=== PATIENT | male | born 1965 | race Caucasian/White ===

== ENCOUNTER 2018-06-09 19:15 | Outpatient (REF) | payer MEDICAID, SELFPAY ==
[2018-06-09 22:04] LABS: Anion Gap 7.5 mmol/L (3-11); BUN 15 mg/dL (7-18); CO2 31.5 mmol/L (21.0-32.0); CREATININE 0.84 mg/dL (0.70-1.30); Calcium 9.7 mg/dL (8.5-10.1); Chloride 100 mmol/L (98-107); Cholesterol 159 mg/dL (50-200); Glucose 202 mg/dL (70-100); HDL Cholesterol 31 mg/dL (40-60); LDL CHOLESTEROL 58 mg/dL (<100); Potassium 4.5 mmol/L (3.5-5.1); Sodium 139 mmol/L (136-145); Triglyceride 389 mg/dL (30-150)
== END 2018-06-09 19:35 ==
LOC: NCHCN 19:15
PROVIDERS: PCP Specialist/Technologist Athletic Trainer; Visit Provider Specialist/Technologist Athletic Trainer
DX: E11.65 Type 2 diabetes mellitus with hyperglycemia (principal); E78.5 Hyperlipidemia, unspecified; I10 Essential (primary) hypertension
CPT/HCPCS: 80048; 80061; 83721

== ENCOUNTER 2019-06-09 19:22 | Outpatient (REF) | payer MEDICAID, SELFPAY ==
[2019-06-09 19:54] LABS: ALT 37 U/L (16-63); AST 23 U/L (15-37); Albumin 3.8 g/dL (3.4-5.0); Alkaline Phosphatase 89 U/L (46-116); Anion Gap 10.5 mmol/L (3-11); BUN 14 mg/dL (7-18); Bilirubin, Total 0.3 mg/dL (0.2-1.0); CO2 27.5 mmol/L (21.0-32.0); Calcium 8.6 mg/dL (8.5-10.1); Chloride 104 mmol/L (98-107); Glucose 177 mg/dL (74-106); Potassium 4.2 mmol/L (3.5-5.1); Sodium 142 mmol/L (136-145); Total Protein 6.5 g/dL (6.4-8.2)
== END 2019-06-09 19:42 ==
LOC: NCHCN 19:22
PROVIDERS: PCP Specialist/Technologist Athletic Trainer; Visit Provider Nurse Practitioner Family
DX: E11.65 Type 2 diabetes mellitus with hyperglycemia (principal)
CPT/HCPCS: 80048; 80076

== ENCOUNTER 2021-02-06 21:57 | Outpatient (REF) | payer MEDICAID, SELFPAY ==
[2021-02-06 19:26] LABS: Hemoglobin A1C 7.3 % (<5.7)
[2021-02-06 19:33] LABS: ALT 49 U/L (16-63); AST 26 U/L (15-37); Alkaline Phosphatase 101 U/L (46-116); Anion Gap 8.2 mmol/L (3-11); BUN 24 mg/dL (7-18); Bilirubin, Total 0.3 mg/dL (0.2-1.0); CO2 28.8 mmol/L (21.0-32.0); Chloride 105 mmol/L (98-107); Glucose 203 mg/dL (74-106); Potassium 4.4 mmol/L (3.5-5.1); Sodium 142 mmol/L (136-145); Total Protein 6.8 g/dL (6.4-8.2)
== END 2021-02-06 21:58 | disposition home or self-care (01) ==
LOC: NCHCN 21:57
PROVIDERS: PCP Specialist/Technologist Athletic Trainer; Visit Provider Nurse Practitioner Family
DX: E11.9 Type 2 diabetes mellitus without complications (principal); Z00.00 Encounter for general adult medical examination without abnormal findings
CPT/HCPCS: 80053; 83036

== ENCOUNTER 2022-10-12 19:01 | Outpatient (REF) | payer MEDICAID, SELFPAY ==
[2022-10-12 19:29] LABS: ALT 18 U/L (16-63); AST 21 U/L (15-37); Albumin 4.1 g/dL (3.4-5.0); Alkaline Phosphatase 83 U/L (46-116); Anion Gap 11.5 mmol/L (3-11); BUN 25 mg/dL (7-18); Bilirubin, Total 0.3 mg/dL (0.2-1.0); CO2 26.5 mmol/L (21.0-32.0); CREATININE 1.1 mg/dL (0.70-1.30); Calcium 9.4 mg/dL (8.5-10.1); Calculated LDL 64 mg/dL (<100); Chloride 104 mmol/L (98-107); Cholesterol 153 mg/dL (<200); Estimated GFR 77.81 (mL/min/1.73m2); Glucose 135 mg/dL (74-106); HDL Cholesterol 33 mg/dL (40-60); Magnesium 1.6 mg/dL (1.8-2.4); Potassium 4.5 mmol/L (3.5-5.1); Sodium 142 mmol/L (136-145); Total Protein 7.4 g/dL (6.4-8.2); Triglyceride 284 mg/dL (<150)
[2022-10-12 19:32] LABS: Hemoglobin A1C 5.8 % (<5.7)
[2022-10-12 19:48] LABS: Vitamin D 25 Total 17.6 ng/mL (30-100)
[2022-10-12 20:35] LABS: Uric Acid 6.2 mg/dL (3.5-7.2)
== END 2022-10-12 19:02 | disposition home or self-care (01) ==
LOC: NCHCN 19:01
PROVIDERS: PCP Specialist/Technologist Athletic Trainer; Visit Provider Nurse Practitioner Family
DX: E11.9 Type 2 diabetes mellitus without complications (principal); E78.1 Pure hyperglyceridemia; I10 Essential (primary) hypertension; M10.09 Idiopathic gout, multiple sites; E55.9 Vitamin D deficiency, unspecified
CPT/HCPCS: 80053; 80061; 82306; 83036; 83735; 84550

== ENCOUNTER → 2023-05-27 11:50 | Outpatient (CLI) | payer MEDICAID, SELFPAY ==
--- NOTE | 2023-05-27 12:40 | DI.RAD_ITS ---
Exam(s) XR SHOULDER RT COMPLETE 2+V EXAM: XR SHOULDER RT COMPLETE 2+V CLINICAL HISTORY: PAIN RT SHOULDER [id number]. TECHNIQUE: 2D digital imaging was performed of the right shoulder. Five images were obtained. AP, Grashey, Y-view and axillary views were obtained. COMPARISON: No exams were available for comparison FINDINGS: BONES: No acute fracture is present. No bony destructive lesion is seen. JOINTS: No dislocation present. There are mild degenerative changes seen at the acromioclavicular and glenohumeral joints. SOFT TISSUE: Calcifications are seen in the soft tissues adjacent to the greater tuberosity consisten t with calcific tendinitis. The visualized lungs are clear. IMPRESSION: Mild degenerative changes of the right shoulder and calcific tendinitis. DATA REPOSITORY: RADIATION DOSE DELIVERED:
== END ==
PROVIDERS: PCP Specialist/Technologist Athletic Trainer; Visit Provider Nurse Practitioner Family
DX: M19.011 Primary osteoarthritis, right shoulder (principal)
CPT/HCPCS: 73030

== ENCOUNTER 2023-11-04 18:20 | Outpatient (REF) | payer MEDICAID, SELFPAY ==
--- OUTSIDE RECORDS SUMMARY | 2023-11-04 18:27 | XMS_ITS | Clinical Summary ---
Author Organization [facility] Address [address] [place] [address] Care Team Providers Care Application Project Leader Name Role Phone Erica Partida Primary Care Provider [phone] Social History Tobacco Use Types Packs/Day Years Used Date Smoking Tobacco: Never Assessed Sex and Gender Information Value Date Recorded Sex Assigned at Not on file Gender Identity Not on file Sexual Orientation Not on file Plan of Treatment Health Maintenance Due Date Last Done Comments Hepatitis C Screen 1965 Hepatitis B Vaccine (1 of 3 - 19+ 3-dose series) 03/08 COVID-19 Vaccine ( season) 2022 Care Teams Application Project Leader Relationship Specialty Start Date End Date Erica Partida [address] [place] [id number] PCP - General 03/05/22
--- OUTSIDE RECORDS SUMMARY | 2023-11-04 18:27 | XMS_ITS | Data Portability ---
Author Organization [place] - [facility] Address [address] [place] [address] Assessment No assessment recorded. Plan of Treatment Reminders Order Date Submit Date Provider Last Modified By Organization Details Last Modified Time Details Appointments Annual Wellness Exam 40 2023 04:20P M Aracelis Amador Not available Not available Not available Nurse Visit 30 2023 03:40P M Nicci Nursing Staff Not available Not available Not available Lab None recorded. Referral orthopedi c surgeon referral 2023 024 [facility], [address], [place], [address], 07/02/2023 12:08:47 Procedures None recorded. Surgeries None recorded. Imaging XR, shoulder, 2 or more view - R shoulder 2023 024 [email or web address] [facility] (Radiology), [address] [place], [address], 06/07/2023 11:13:33 Medication Orders None recorded. Patient TargetsNo targets recorded. Patient InstructionsNo instructions recorded. Reason for Referral Orthopedic Surgeon Referral for Pain of right shoulder joint Referring Physician: Aracelis Partida, Family Medicine, Encounter Date: 05/27/2023 Results Created Date Observation Date Name Description Value Unit Range Abnormal Flag LastModifiedBy Organization Detail LastModifiedTime 05/27/19 24 05/27/2023 x-ray imagi ng repor t Patien t Name: Reynold Guerra Unit #: [id number] Loc: DI Orderi ng Provid er: Menapa Rc Rangel Accoun t #: [id number] Status : REG CLI Primar y Care Provid er: Tio Crain Date of Exam: 0 4 Sex: M Admiss ion Date: : 1964 Age: 58 Exam(s ) XR SHOULD ER RT COMPLE TE 2+V EXAM: XR SHOULD ER RT COMPLE TE 2+V CLINIC AL HISTOR Y: PAIN RT SHOULD ER M25.51 1. TECHNI QUE: 2D digita l imagin g was perfor med of the right should er. Five images were obtain ed. AP, Grashe y, Y-view and axilla ry views were obtain ed. COMPAR CHANTELLE: No exams were availa ble for compar chantelle FINDIN GS: BONES: No acute fractu re is presen t. No bony destru ctive lesion is seen. JOINTS : No disloc ation presen t. There are mild degene rative change s seen at the acromi oclavi cular and glenoh umeral joints . SOFT TISSUE : Calcif icatio ns are seen in the soft tissue s adjace nt to the greate r tubero sity consis tent with calcif ic tendin itis. The visual ized lungs are clear. IMPRES CHRISTY: Mild degene rative change s of the right should er and calcif ic tendin itis. DATA REPOSI TORY: RADIAT ION DOSE DELIVE RED: Ordere d By: Rc Cedeno CC: ------ ------ ------ ------ ------ ------ ------ ------ ------ ------ ------ ------ - Dictat ed By: Dannie Chin M.D. 1336 Transc ribed By: Dannie Chin 1336 This is privil eged, confid ential inform ation intend ed only for the provid er named. Any use or distri bution by any person other than this provid er is strict ly prohib ited. If you receiv e this report in error, please notify us gunnar liu at and return the origin al report to us at the addres s above. Thank- you. merry [facility] [address] [place], [address] 05/28/2023 17:05:47 Result Notes None recorded. Problems Name Status Onset Date Resolution Date Notes Provider Name and Address Organization Details Recorded Time Essential hypertension Active 200909/22/2019 - Comments only - Aracelis Partida [employer] - - Well-controll ed on lisinopril 20mg po qd - Continue at this dose Problem Code: I10; Problem Code Type: ICD-10; [facility] 4 15:25:29 Hyperlipidemi a Active 200910/13/2022 - Comments only - Aracelis Partida [employer] - - He continues on atorvastatin 20mg po qd. Lipids drawn today; last checked 2018 Problem Code: E78.5; Problem Code Type: ICD-10; Puja meek [facility]. 4 15:25:29 Primary gout Active 201309/22/2019 - Improved - Aracelis Partida [employer] - - No recent flares - Indomethacin and colchicine refilled to have on hand for prn use Problem Code: M10.00; Problem Code Type: ICD-10; Puja meek [facility], [facility]. 4 15:25:29 Insomnia Active 2009 Problem Code: G47.00; Problem Code Type: ICD-10; Puja meek [facility]. 4 15:25:29 Adult health examination Active 201610/13/2022 - Comments only - Aracelis Partida [employer] - - Td given today Problem Code: Z00.00; Problem Code Type: ICD-10; Not Available [employer] 3 04:53:45 Pure hyperglycerid emia Active 2017 Problem Code: E78.1; Problem Code Type: ICD-10; [facility] 4 15:25:29 Erectile dysfunction Active 2017 Problem Code: N52.9; Problem Code Type: ICD-10; [facility] 4 15:25:29 Pain in thoracic spine Active 202009/26/2020 - Comments only - [facility] - - Well managed on prn indomethacin, approx 4 tabs/week - Will hopefully have improvement in back pain with weight loss. Will continue to monitor. OK to continue with indomethacin as he has been. Is taking omeprazole 40mg qd. Problem Code: M54.9; Problem Code Type: ICD-10; Puja Colin [facility] 4 15:25:29 Type 2 diabetes mellitus without complication Active 202110/13/2022 - Comments only - Aracelis Partida [facility] - - Serum A1c drawn today. He was reluctant to stop glipizide 3 months ago when A1c = 6.0, but does agree to stop it if today's A1c continues to be in normal range. -- He will continue Jardiance, Trulicity, and metformin, and meet with Daphney Carlton RN, [facility] as needed. - He is also on atorvastatin and lisinopril. - CMP, lipids drawn today - He will return in 3 months for A1c. 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 Problem Code: Q13.4; Problem Code Type: ICD-10; Not Available Count includes the [facility] 3 04:53:46 Body mass index 40+ - severely obese Completed 201607/09/2022 Problem Code: Z68.41; Problem Code Type: ICD-10; Not Available Count includes the [facility] 3 04:53:46 Impaired fasting glycemia Completed 201505/24/2019 Problem Code: R73.01; Problem Code Type: ICD-10; Not Available Count includes the [facility] 3 04:53:47 Abnormal weight gain Completed 201612/30/2022 Problem Code: R63.5; Problem Code Type: ICD-10; Not Available Count includes the [facility] 3 04:53:47 Hyperglycemia Completed 201705/24/2019 Problem Code: R73.9; Problem Code Type: ICD-10; Not Available Count includes the [facility] 3 04:53:47 Hyperglycemia due to type 2 diabetes mellitus Completed 201706/20/2020 Problem Code: E11.65; Problem Code Type: ICD-10; Not Available Count includes the [facility] 3 04:53:48 Pain of left hip joint Completed 201407/09/2022 Problem Code: M25.552; Problem Code Type: ICD-10; Not Available Count includes the [facility] 3 04:53:48 Type 2 diabetes mellitus without complication Completed 201907/09/2022 Problem Code: E11.9; Problem Code Type: ICD-10; BARR[place] Pina [facility]. 4 15:25:29 Hypertensive disorder Completed 200912/30/2022 Not Available Count includes the [facility] 3 04:53:49 Vitamin D deficiency Active 202201/07/2023 - Comments only - Aracelis Partida [employer] - - He has two more doses of high-dose vitamin D, then will switch to 2000IU qd - Plan to recheck Vit D with next lab draw Problem Code: E55.9; Problem Code Type: ICD-10; Puja Colin fantasma, [facility] 4 15:25:29 Hypomagnesemi a Active 202201/07/2023 - Comments only - [facility] - - He has been taking magnesium glyconate without adverse side effects; continue, will rec heck Mg with next lab draw - He continues on metformin Problem Code: E83.42; Problem Code Type: ICD-10; Puja Montejoleila meek, [facility] 4 15:25:29 Gout Active 202201/07/2023 - Comments only - [facility] - - No recent flares, uric acid 10/12/22 = 6.2 - I have asked him to bring in all of his medications to his next OV, as he was a bit unclear about what to take for this and when Problem Code: M10.9; Problem Code Type: ICD-10; Puja Colin fantasma, [facility] 4 15:25:29 Problem Notes None recorded. Procedures Surgical History None recorded. Imaging Results Imaging Date Name Status LastModified by Estelita kramer Details LastModified Time 05/27/2023 x-ray imaging report completed [id number] [facility] [address] [place], [address] 05/28/2023 17:05:47 Procedure Notes None recorded. Medical Equipment None Reported. Allergies No known drug allergies Medications Name Sig Start Date Stop Date Status Note LastModified by Organization Details LastModified Time metformin 500 mg tablet TAKE TWO TABLETS BY MOUTH TWICE A DAY active Not Available Not Available No t Available atorvasta tin 20 mg tablet TAKE ONE TABLET BY MOUTH EVERY EVENING active Not Available Not Available No t Available trazodone 50 mg tablet 1 Tab QHS 09/05 completed Not Available Not Available Not Available FreeStyle Lancets 28 gauge USE ONE LANCET UNDER THE SKIN ONCE DAILY 2022 active Not Available Not Available Not Avai lable lisinopri l 20 mg tablet TAKE ONE TABLET BY MOUTH EVERY DAY 2023 active Not Available Not Available Not Avai lable Prilosec 20 mg capsule,d elayed release 1 CAP QD 03/26 completed Not Available Not Available Not Available penicilli n V potassium 500 mg tablet 05/27 completed Not Available Not Available Not Available omeprazol e 40 mg capsule,d elayed release TAKE ONE CAPSULE BY MOUTH EVERY DAY active Not Available Not Available No t Available amoxicill in 500 mg tablet Take one tab by mouth three times a day 04/19 completed Dental prescrip tion Not Available Not Available Not Available Tessalon Perles 100 mg capsule 1 CAP TID 05/10 completed Not Available Not Available Not Available trazodone 100 mg tablet Take 2 tabs at hs 04/27 completed Not Available Not Available Not Available lisinopri l 10 mg tablet 1 tab daily 2012 active Not Available Not Available Not Avai lable indometha steve 50 mg capsule TAKE ONE CAPSULE BY MOUTH THREE TIMES A DAY NEEDED active Not Available Not Available No t Available ergocalci ferol (vitamin D2) 1,250 mcg (50,000 unit) capsule TAKE ONE CAPSULE BY MOUTH ONCE A WEEK FOR 12 WEEKS. THEN START TAKING ONE CAPSULE OTC DAILY 11/03 completed Not Available Not Available Not Available colchicin e 0.6 mg tablet TAKE ONE TABLET BY MOUTH TWICE A DAY FOR 3 DAYS FOR GOUT FLARE active Not Available Not Available No t Available Naprosyn 500 mg tablet 1 TAB BID 05/26 completed Not Available Not Available Not Available Ambien 5 mg tablet 1 PRN Q 06/26 completed Not Available Not Available Not Available glipizide 5 mg tablet TAKE ONE TABLET BY MOUTH EVERY DAY active Not Available Not Available No t Available Fish Oil 1,000 mg capsule take 2 capsules daily 04/29 completed Not Available Not Available Not Available Lancets, Super Thin Administ er 1 lancet subcutan eously once a day 10/20 completed Not Available Not Available Not Available sildenafi l (pulmonar y hypertens ion) 20 mg tablet TAKE 1 TO 2 TABLETS BY MOUTH UP TO ONCE DAILY NEEDED PRIOR TO SEXUAL ACTIVITY active Not Available Not Available No t Available Rozerem 8 mg tablet 1 qhs 07/10 completed Not Available Not Available Not Available omeprazol e 12/24 completed Not Available Not Available Not Available FreeStyle Lite Strips USE TO TEST ONCE DAILY DIRECTED active Not Available Not Available No t Available omeprazol e 20 mg tablet,de layed release 1 qd 06/24 completed Not Available Not Available Not Available FreeStyle [place] Lite kit USE METER ONCE DAILY DIRECTED active Not Available Not Available No t Available cholecalc iferol (vitamin D3) 50 mcg (2,000 unit) capsule TAKE ONE CAPSULE BY MOUTH EVERY DAY active Not Available Not Available No t Available OneTouch Delica Lancets 30 gauge test once daily. E11.9 2017 active Not Available Not Available Not Avai lable Jardiance 10 mg tablet TAKE 1 TABLET BY MOUTH DAILY IN THE MORNING 07/07 completed Not Available Not Available Not Available Jardiance 25 mg tablet TAKE ONE TABLET BY MOUTH EVERY DAY active Not Available Not Available No t Available Trulicity 1.5 mg/0.5 mL subcutane ous pen injector Inject 1 1/2 mg subcutan eously once a week Start W 02/04/22 ( after last 0.75mg/0 .5ml dose) 03/05 completed Not Available Not Available Not Available Trulicity 0.75 mg/0.5 mL subcutane ous pen injector Inject 3/4 mg subcutan eously once a week Inject 0.75 mg weekly for 4-6 weeks. May increase to 1.5mg/0. 5ml if tolerate d 02/06 completed Not Available Not Available Not Available colchicin e 0.6 mg capsule TAKE 1 CAPSULE BY MOUTH TWICE DAILY FOR 3 DAYS FOR GOUT FLARE. ENOUGH FOR 2 GOUT FLARES 12/17 completed Not Available Not Available Not Available OneTouch Verio Flex Meter Check blood sugars daily as directed . 2017 active Not Available Not Available Not Avai lable Trulicity 3 mg/0.5 mL subcutane ous pen injector INJECT 3MG SUBCUTAN EOUSLY ONCE A WEEK 05/27 completed Not Available Not Available Not Available Trulicity 4.5 mg/0.5 mL subcutane ous pen injector INJECT 1 PEN (4.5MG) SUBCUTAN EOUSLY ONCE A WEEK ONLY (STOP GLIPIZID E) active Not Available Not Available No t Available magnesium 100 mg (as glycinate ) capsule Take 2 capsule by mouth once a day 2022 active Not Available Not Available Not Avai lable Vitals Date Recorded Body height Body mass index (BMI) Body weight Heart rate Systolic blood pressure Diastolic blood pressure Provider Name and Address Organization Details Last Updated DateTime 4 172.085 cm 39.9 kg/m2 299166. 45 g 95 /min 131 mm[Hg] 82 mm[Hg] Corinna monge LPN [facility] 4 10:38:03 Date Recorded Body height Body mass index (BMI) Body weight Heart rate Systolic blood pressure Diastolic blood pressure Provider Name and Address Organization Details Last Updated DateTime 4 172.085 cm 39.6 kg/m2 608461. 2 g 92 /min 120 mm[Hg] 68 mm[Hg] Corinna monge LPN [facility] 4 16:29:33 Social History Question Answer Notes LastModified by Organizat ion Details LastModified Time Tobacco Smoking Status Former Smoker Corinna Lawson LPN [facility] 11/04/2023 17:36:44 When Did You Quit Smoking? 6-10yearssinc elastcigarett e [email or web address] Information not available 11/04/2023 Would You Say That, In General, Your Health Is Very Good [email or web address] Information not available 11/04/2023 How Often Does Anyone, Including Family, Physically Hurt You? Never [email or web address] Information not available 11/04/2023 How Often Does Anyone, Including Family, Insult Or Talk Down To You? Never [email or web address] Information no t available 11/04/2023 How Often Does Anyone, Including Family, Threaten You With Harm? Never [email or web address] Information not available 11/04/2023 How Often Does Anyone, Including Family, Scream Or Curse At You? Never [email or web address] Information not available 11/04/2023 Within The Past 12 Months, You Worried That Your Food Would Run Out Before You Got Money To Buy More. Never True [email or web address] Information n ot available 11/04/2023 Within The Past 12 Months, The Food You Bought Just Didn't Last And You Didn't Have Money To Get More. Sometimes True [email or web address] Information not available 11/04/2023 How Hard Is It For You To Pay For The Very Basics Like Food, Housing, Medical Care, And Heating? Would You Say It Is: Somewhat Hard Information not available 11/04/2023 In The Past 12 Months, Has Lack Of Reliable Transportation Kept You From Medical Appointments, Meetings, Work Or From Getting Things Needed For Daily Living? No [email or web address] Information not available 11/04/2023 What Is Your Housing Situation Today? I Have Housing. [email or web address] Information not available 11/04/2023 How Often In The Past Year Have You Used Marijuana (including Smoking, Vaping, Dabbing, Or Edibles)? Never [email or web address] Information not available 11/04/2023 How Often In The Past Year Have You Used Prescription Medications That Were Not Prescribed To You? Never [email or web address] Information n ot available 11/04/2023 How Often In The Past Year Have You Taken Your Own Prescription Medication More Than The Way It Was Prescribed Or For Different Reasons Than Its Intended Purpose? Never [email or web address] Information no t available 11/04/2023 How Often In The Past Year Have You Used Other Drugs (for Example, Heroin, Cocaine, Meth, Salvia, Inhalants)? Never [email or web address] Information not available 11/04/2023 Have You Ever Used IV Drugs? No [email or web address] Information not available 11/04/2023 Date Of Most Recent SBINS 11/04/2023 [email or web address] Information not available 11/04/2023 Do You Have A Medical Power Of Tax Commissioner? No [email or web address] Information not available 11/04/2023 What Was The Date Of Your Most Recent Tobacco Screening? 11/04/2023 [email or web address] Information not available 11/04/2023 What Is Your Current Pack Years? 10-19packyear s [email or web address] Information not available 11/04/2023 How Much Tobacco Do You Smoke? No [email or web address] Information not available 11/04/2023 Has Tobacco Cessation Counseling Been Provided? Yes [email or web address] Information not available 11/04/2023 Do You Or Have You Ever Used Any Other Forms Of Tobacco Or Nicotine? No [email or web address] Information not available 11/04/2023 Sex: Male Functional Status None recorded. Mental Status None recorded. Family History Relationship Description Onset Age of this Age Resolved Age Notes Notes:*Problem: UPDATED 04/29/17 Mother: L&W with unknown medical issues Father: at 77y/o from prostate CA, h/o cerebral hemorrhage Sister x 1: L&W without ongoing medical issues Brothers x 1: L&W without ongoing medical issues. SON x 1 - L&W without ongoing medical issues DAUGHTER x 1 - L&W without ongoing medical issues. Family History of: Hypertension: no Hyperlipidemia: no Coronary heart disease: no Diabetes mellitus: no Breast cancer: no Colorectal cancer: no Prostate cancer: yes, father Alcoholism: no Mental illness: no Other: no Medical History No medical history recorded. Immunizations Vaccine Type Date Status Provider Name and Address Organization Details Recorded Time Td (adult), 2 Lf tetanus toxoid, preservative free, adsorbed 09/22/2019 completed Not Available [facility] includes the [facility] 02/12/2023 05:49:23 Td (adult), 2 Lf tetanus toxoid, preservative free, adsorbed 10/12/2022 completed Not Available Count includes the [facility] 02/12/2023 05:49:24 Tdap 02/26/2010 completed Not Available Count includes the [facility] 05:49:24 Influenza, split virus, quadrivalent, PF 12/22/2019 completed Not Available [facility] includes the [facility] 02/12/2023 05:49:24 zoster recombinant 04/09/2022 completed Not Available [facility] 02/12/2023 05:49:25 zoster recombinant 12/26/2021 completed Not Available [facility] 02/12/2023 05:49:25 SARS-COV-2 (COVID-19) vaccine, UNSPECIFIED 07/02/2020 completed Not Available [facility] includes the [facility] 02/12/2023 05:49:25 SARS-COV-2 (COVID-19) vaccine, UNSPECIFIED 07/30/2020 completed Not Available [facility] includes the [facility] 02/12/2023 05:49:25 SARS-COV-2 (COVID-19) vaccine, UNSPECIFIED 01/14/2021 completed Not Available [facility] 02/12/2023 05:49:26 influenza, unspecified formulation 11/19/2021 completed Not Available [facility] 02/12/2023 05:49:26 Influenza, split virus, quadrivalent, PF 01/04/2023 completed Not Available [facility] 04/16/2023 05:31:29 Past Encounters Encounter ID Performer Location Encounter Start Date Encounter Closed Date Diagnosis/Indication Diagnosis SNOMED-CT Code [id number] ARACELIS FENTON, [employer]-BC [facility] [address] [place] [address] 05/27/2023 10:30:38 05/27/2023 11:07:24 Pain of right shoulder joint [id number] 00 [id number] Analia German [address] [address] 11/04/2023 16:16:04 11/04/2023 17:15:16 Active or passive immunization 322765706 Screening for malignant neoplasm of colon 334663279 [facility] 419737920 Type 2 iman betes mellitus without complication 865205802 Vitamin D deficiency 347 34258 Gout 09428209 Gastroesop hageal reflux disease without esophagitis 934241320 Health Concerns Section Related Observation LastModified by Organization Detai ls LastModified Time None Recorded Concern Status LastModified by Organization Details LastModified Time None Recorded Advance Directives Directive None Recorded Payers Encounter Date Sequence Insurance Name Policy Number Policy Patricio Covered Member ID Patricio Member ID Guarantor Name 05/27/2023 1 [facility] (MEDICAID) Moreno Giraldo [id number] Moreno Giraldo Notes Date Note Type Note Provider Name and Address Organization Details Recorded Time 05/27/2023 text/html HPI Notes: Shoulder Reported by patient. Notes: Right shoulder pain has been ongoing for the past few months, worse over the past approx 2 weeks. He does not recall any specific injury to the area. He has been pushing through, but is now unable to lift his arm beyond shoulder height much of the time. He reports difficulty sleeping at night due to aching pain in the joint. He denies radiation into his arm or hand, denies numbness or tingling. Denies neck pain. He has down time work-linda for the next 6-8 weeks, so wants to know what is wrong and get it fixed as soon as possible, if possible. Taking green gout pill (indomethacin)for his shoulder pain when Tylenol and ibuprofen not helping, and this does help. He has not other concerns today. He is scheduled for his wellness exam in 2 months. ARACELIS PARTIDA, [employer] HAND[employer]ER- [address], [place], [address], [facility]. 05/27/2023 19:42:37
--- OUTSIDE RECORDS SUMMARY | 2023-11-04 18:27 | XMS_ITS | Referral Summary ---
Author Organization [facility] Address [address] [place] [address] Care Team Providers Care Video Arcade Manager Name Role Phone Erica Partida Primary Care Provider [phone] Social History Tobacco Use Types Packs/Day Years Used Date Smoking Tobacco: Never Assessed Sex and Gender Information Value Date Recorded Sex Assigned at Not on file Gender Identity Not on file Sexual Orientation Not on file Plan of Treatment Not on file Care Teams Video Arcade Manager Relationship Specialty Start Date End Date Erica Partida [address] [place] [address] [id number] PCP - General 03/05/22
--- OUTSIDE RECORDS SUMMARY | 2023-11-04 18:27 | XMS_ITS | Encounter Summary ---
Author Organization [facility] Address [address] [place] [address] Care Team Providers Care Nurseryperson Name Role Phone RicardoPerry Erica Primary Care Provider [phone] Encounter Details Date Type Department Care Team (Late st Contact Info) Description 03/18/2022 Lab Requisition [facility] - Main [address] [address] Víctor Puri MD [address] [place] [phone] Encounter for screening for malignant neoplasm of colon Social History Tobacco Use Types Packs/Day Years Used Date Smoking Tobacco: Never Assessed Sex and Gender Information Value Date Recorded Sex Assigned at Not on file Gender Identity Not on file Sexual Orientation Not on file documented as of this encounter Plan of Treatment Not on file documented as of this encounter Procedures Procedure Name Priority Date/Time Associated Diagnosis Comments SURGICAL PATHOLOGY Today 03/16/2022 7:48 EST documented in this encounter Results * SURGICAL PATHOLOGY (03/16/2022 7:48 EST) Note to Patient The following pathology results have been interpreted by your pathologist and may be available to you before your health provider has had the opportunity to review them. Please allow time for your provider to receive these results and explore management options, if applicable. 03/19/2022 9:42 EST [facility] Final Diagnosis A. PROXIMAL DESCENDING COLON, BIOPSY: - Tubular adenoma. B. SIGMOID COLON, BIOPSY: - Polypoid colonic mucosa with lymphoid aggregate and features of prolapse. C. RECTUM, BIOPSY: - Hyperplastic polyp. 03/19/2022 9:42 [facility] Attestation By the signature below, the attending physician certifies that they have 1) personally conducted a gross and/or microscopic examination of the described specimen(s), and/or personally interpreted the results of laboratory testing of the described specimen(s), and 2) personally rendered or confirmed the above diagnosis. 03/19/2022 9:42 [facility] at 0942 Clinical History screening 03/19/2022 9:42 [facility] Gross Description A. The specimen is received in formalin labeled with ? Moreno E. Nithin? and ? A? and ? polyp proximal descending colon. Submitted in cassette A1 is a mucosal tissue fragment that measures up to 0.2 x 0.3 x 0.7 cm. Submitted in cassette A2 is an estimated 0.1 cc aggregate of apparent digestive material and possible mucosal fragments, filtered. The specimen is entirely submitted in 2 cassettes. B. The specimen is received in formalin labeled with ? Moreno E. Nithin? and ? B? and ? polyp sigmoid colon? is a mucosal fragment that measures 0.2 x 0.3 x 0.4 cm. The specimen is entirely submitted in 1 cassette. C. The specimen is received in formalin labeled with ? Moreno E. Nithin? and ? C? and ? rectal polyp? is a mucosal fragment that measures up to 0.3 x 0.4 x 0.6 cm. The specimen is entirely submitted in 1 cassette. Stephania Jackson 03/18/2022 11:41 03/19/2022 9:42 [facility] Performing Lab [facility] 03/19/2022 9:42 [facility] Scanned Images 03/19/2022 9:42 [facility] Tissue ENTIRE RECTUM / Unknown 03/16/2022 7:48 EST 03/18/2022 7:49 EST Tissue specimen (specimen) SIGMOID COLON STRUCTURE / Unknown 03/16/2022 7:48 EST 03/18/2022 7:49 EST Tissue specimen (specimen) ENTIRE RECTUM / Unknown 03/16/2022 7:48 EST 03/18/2022 7:49 EST Víctor Puri MD PATHOLOGY ORD ERABLES [facility] [address] [place] [address] documented in this encounter Visit Diagnoses Diagnosis Encounter for screening for malignant neoplasm of colon Special screening for malignant neoplasms, colon documented in this encounter Care Teams Nurseryperson Relationship Specialty Start Date End Date Erica Partida [address] [place] [id number] PCP - General 03/05/22 documented as of this encounter
--- OUTSIDE RECORDS SUMMARY | 2023-11-04 18:27 | XMS_ITS | Continuity of Care Document ---
Author Organization [facility] Address [address] [place] [id number] Care Team Providers Care Corporate Associate Name Role Phone ARACELIS GILLETTE Primary Care Physician Encounter [facility] NBR [id number] Date(s): 03/16/22 - 03/16/[address] [phone] Encounter Diagnosis Encounter for screening colonoscopy(Discharge Diagnosis) - 03/16/22 Discharge Disposition: Home or Self Care Attending Physician: Víctor Puri MD Admitting Physician: Víctor Prui MD Allergies, Adverse Reactions, Alerts No Known Medication Allergies Functional Status 03/16/22 ADLs Independent Family Member Travel History No recent t ravel Recent Travel History No recent travel Other exposure to Infectious Disease Non e Medications atorvastatin 20 mg oral tablet 20 mg = 1 tab, Oral, Daily, # 30 tab, 0 Refill(s) Start Date: 03/10/22 Status: Ordered colchicine 0.6 mg oral capsule 0.6 mg = 1 cap, Oral, BID, PRN gout pain, # 180 cap, 0 Refill(s) Start Date: 03/10/22 Status: Ordered glipiZIDE 5 mg oral tablet 5 mg = 1 tab, Oral, Daily, # 30 tab, 0 Refill(s) Start Date: 03/10/22 Status: Ordered indomethacin 25 mg oral capsule 25 mg = 1 cap, Oral, Daily, PRN gout pain, with food or milk, # 60 cap, 0 Refill(s) Start Date: 03/10/22 Status: Ordered Jardiance 25 mg oral tablet 25 mg = 1 tab, Oral, every morning, # 30 tab, 0 Refill(s) Start Date: 03/10/22 Status: Ordered lisinopril 20 mg oral tablet 20 mg = 1 tab, Oral, Daily, # 30 tab, 0 Refill(s) Start Date: 03/10/22 Status: Ordered metFORMIN 1000 mg oral tablet 1,000 mg = 1 tab, Oral, BID, # 180 tab, 0 Refill(s) Start Date: 03/10/22 Status: Ordered omeprazole 40 mg oral delayed release capsule 40 mg = 1 cap, Oral, Daily, # 90 cap, 0 Refill(s) Start Date: 03/10/22 Status: Ordered Trulicity Pen 0.75 mg/0.5 mL subcutaneous solution 0.75 mg = 0.5 mL, Subcutaneous, every week, 0 Refill(s) Start Date: 03/11/22 Status: Ordered Problem List Condition Confirmation Course Effective Dates Status H ealth Status Informant Back pain Confirmed Active Cornea anomaly Confirmed Active Gouty arthritis Confirmed Active HLD - Hyperlipidemia Confirmed Active HTN - Hypertension Confirmed Active Insomnia Confirmed Active Triglyceridemia Confirmed Active Type 2 diabetes mellitus Confirmed Active Procedures Procedure Date Related Diagnosis Body Site Status Colonoscopy Biopsy 1 03/16/22 Comp leted Evacuation of blood clot of skin of limb, arm Completed 1auto-populated from documented surgical case Vital Signs Most recent to oldest [Reference Range]: 1 2 3 Temperature Temporal Artery [36-38 Deg C] 36.4 Deg C (03/16/22 8:24 AM) 36.7 Deg C (03/16/22 8:15 AM) 36.2 Deg C (03/16/22 8:00 AM) Temperature Temporal Artery (DegF) [97.3-100 Deg F] 97.16 Deg F *LOW* (03/16/22 8:00 AM) Peripheral Pulse Rate [60-100 bpm] 87 bpm (03/16/22 8:14 AM) 92 bpm (03/16/22 8:03 AM) 103 bpm *HI* (03/16/22 8:00 AM) Respiratory Rate [12-24 br/min] 18 br/min (03/16/22 6:37 AM) Blood Pressure [90-140/60-90 mmHg] 122/74mmHg (03/16/22 8:14 AM) 116/70mmHg (03/16/22 8:03 AM) 108/77mmHg (03/16/22 8:00 AM) Mean Arterial Pressure, Cuff [65-140 mmHg] 90 mmHg (03/16/22 8:14 AM) 85 mmHg (03/16/22 8:03 AM) Mean Arterial Pressure Cuff 86 mmHg (03/16/22 8:14 AM) 84 mmHg (03/16/22 8:03 AM) Weight 113.400 kg (03/11/22 8:53 AM) Weight Dosing 113.400 kg (03/11/22 8:53 AM) Height 170.000 cm (03/11/22 8:53 AM) Height/Length Dosing 170.000 cm (03/11/22 8:53 AM) Social History Social History Type Response Tobacco Former tobacco user Tobacco Use:. Sex Hospital Discharge Instructions Patient Education 03/16/2022 07:04:04 Colonoscopy, Adult, Care After Colonoscopy, Adult, Care After This sheet gives you information about how to care for yourself after your procedure. Your health care provider may also give you more specific instructions. If you have problems or questions, contact your health care provider. What can I expect after the procedure? After the procedure, it is common to have: ??? A small amount of blood in your stool for 24 hours after the procedure. ??? Some gas. ??? Mild cramping or bloating of your abdomen. Follow these instructions at home: Eating and drinking ??? Drink enough fluid to keep your urine pale yellow. ??? Follow instructions from your health care provider about eating or drinking restrictions. ??? Resume your normal diet as instructed by your health care provider. Avoid heavy or fried foods that are hard to digest. Activity ??? Rest as told by your health care provider. ??? Avoid sitting for a long time without moving. Get up to take short walks every 1???2 hours. This is important to improve blood flow and breathing. Ask for help if you feel weak or unsteady. ??? Return to your normal activities as told by your health care provider. Ask your health care provider what activities are safe for you. Managing cramping and bloating ??? Try walking around when you have cramps or feel bloated. ??? Apply heat to your abdomen as told by your health care provider. Use the heat source that your health care provider recommends, such as a moist heat pack or a heating pad. ??? Place a towel between your skin and the heat source. ??? Leave the heat on for 20???30 minutes. ??? Remove the heat if your skin turns bright red. This is especially important if you are unable to feel pain, heat, or cold. You may have a greater risk of getting burned. General instructions ??? If you were given a sedative during the procedure, it can affect you for several hours. Do not drive or operate machinery until your health care provider says that it is safe. ??? For the first 24 hours after the procedure: ??? Do not sign important documents. ??? Do not drink alcohol. ??? Do your regular daily activities at a slower pace than normal. ??? Eat soft foods that are easy to digest. ??? Take tupk-emw-snyjdhx and prescription medicines only as told by your health care provider. ??? Keep all follow-up visits as told by your health care provider. This is important. Contact a health care provider if: ??? You have blood in your stool 2???3 days after the procedure. Get help right away if you have: ??? More than a small spotting of blood in your stool. ??? Large blood clots in your stool. ??? Swelling of your abdomen. ??? Nausea or vomiting. ??? A fever. ??? Increasing pain in your abdomen that is not relieved with medicine. Summary ??? After the procedure, it is common to have a small amount of blood in your stool. You may also have mild cramping and bloating of your abdomen. ??? If you were given a sedative during the procedure, it can affect you for several hours. Do not drive or operate machinery until your health care provider says that it is safe. ??? Get help right away if you have a lot of blood in your stool, nausea or vomiting, a fever, or increased pain in your abdomen. This information is not intended to replace advice given to you by your health care provider. Make sure you discuss any questions you have with your health care provider. Document Revised: 03/15/2020 Document Reviewed: 10/16/2019 [employer] Patient Education ?? 2021 [employer]. 03/16/2022 07:04:03 Colon Polyps Colon Polyps Colon polyps are tissue growths inside the colon, which is part of the large intestine. They are one of the types of polyps that can grow in the body. A polyp may be a round bump or a mushroom-shapedgrowth. You could have one polyp or more than one. Most colon polyps are noncancerous (benign). However, some colon polyps can become cancerous over time. Finding and removing the polyps early can help prevent this. What are the causes? The exact cause of colon polyps is not known. What increases the risk? The following factors may make you more likely to develop this condition: ??? Having a family history of colorectal cancer or colon polyps. ??? Being older than 45 years of age. ??? Being younger than 45 years of age and having a significant family history of colorectal canceror colon polyps or a genetic condition that puts you at higher risk of getting colon polyps. ??? Having inflammatory bowel disease, such as ulcerative colitis or Crohn's disease. ??? Having certain conditions passed from parent to child (hereditary conditions), such as: ??? Familial adenomatous polyposis (FAP). ??? Horan syndrome. ??? Turcot syndrome. ??? Peutz???Jeghers syndrome. ??? MUTYH-associated polyposis (MAP). ??? Being overweight. ??? Certain lifestyle factors. These include smoking cigarettes, drinking too much alcohol, not getting enough exercise, and eating a diet that is high in fat and red meat and low in fiber. ??? Having had childhood cancer that was treated with radiation of the abdomen. What are the signs or symptoms? Many times, there are no symptoms. If you have symptoms, they may include: ??? Blood coming from the rectum during a bowel movement. ??? Blood in the stool (feces). The blood may be bright red or very dark in color. ??? Pain in the abdomen. ??? A change in bowel habits, such as constipation or diarrhea. How is this diagnosed? This condition is diagnosed with a colonoscopy. This is a procedure in which a lighted, flexible scope is inserted into the opening between the buttocks (anus) and then passed into the colon to examine the area. Polyps are sometimes found when a colonoscopy is done as part of routine cancer screening tests. How is this treated? This condition is treated by removing any polyps that are found. Most polyps can be removed during a colonoscopy. Those polyps will then be tested for cancer. Additional treatment may be needed depending on the results of testing. Follow these instructions at home: Eating and drinking ??? Eat foods that are high in fiber, such as fruits, vegetables, and whole grains. ??? Eat foods that are high in calcium and vitamin D, such as milk, cheese, yogurt, eggs, liver, fish, and broccoli. ??? Limit foods that are high in fat, such as fried foods and desserts. ??? Limit the amount of red meat, precooked or cured meat, or other processed meat that you eat, such as hot dogs, sausages, watson, or meat loaves. ??? Limit sugary drinks. Lifestyle ??? Maintain a healthy weight, or lose weight if recommended by your health care provider. ??? Exercise every day or as told by your health care provider. ??? Do not use any products that contain nicotine or tobacco, such as cigarettes, e-cigarettes, andchewing tobacco. If you need help quitting, ask your health care provider. ??? Do not drink alcohol if: ??? Your health care provider tells you not to drink. ??? You are , may be , or are planning to become . ??? If you drink alcohol: ??? Limit how much you use to: ??? 0???1 drink a day for women. ??? 0???2 drinks a day for men. ??? Know how much alcohol is in your drink. In the [place] one drink equals one 12 oz bottle of beer (355 mL), one 5 oz glass of wine (148 mL), or one 1?? oz glass of hard liquor (44 mL). General instructions ??? Take wolk-rwt-uxiwhzl and prescription medicines only as told by your health care provider. ??? Keep all follow-up visits. This is important. This includes having regularly scheduled colonoscopies. Talk to your health care provider about when you need a colonoscopy. Contact a health care provider if: ??? You have new or worsening bleeding during a bowel movement. ??? You have new or increased blood in your stool. ??? You have a change in bowel habits. ??? You lose weight for no known reason. Summary ??? Colon polyps are tissue growths inside the colon, which is part of the large intestine. They are one type of polyp that can grow in the body. ??? Most colon polyps are noncancerous (benign), but some can become cancerous over time. ??? This condition is diagnosed with a colonoscopy. ??? This condition is treated by removing any polyps that are found. Most polyps can be removed during a colonoscopy. This information is not intended to replace advice given to you by your health care provider. Make sure you discuss any questions you have with your health care provider. Document Revised: 07/10/2020 Document Reviewed: 07/10/2020 [employer] Patient Education ?? 2021 [employer] Discharge instructions * Sharyn Cotton: PERFORM Event Display: Discharge Instructions Authored Date: [id number] JULIAN WELLER :1965 Age:57 years Sex:Male Visit Date:03/16/2022 Primary Care Physician: STACEY LEW [facility] Discharge Instructions We would like to thank you for allowing us to assist you with your healthcare needs. The following includes patient education materials and information regarding your injury/illness. After you leave the hospital, you may get your health information including your test results, physician notes and discharge information by accessing your Patient Portal. Your Next Steps Discharge Orders Discharge Patient Instructions, Call with any additional questions or concerns Discharge Patient Instructions, Call or come to emergency department for dizziness Discharge Patient Instructions, Call or come to emergency department chest pain, or shortness of breath Discharge Patient Instructions, Call or come to emergency department for fever greater than 100 ??F Discharge Patient Instructions, You should not be responsible for the care of others Discharge Patient Instructions, Do not sign any contracts, make any major decisions, or drive or operate machinery for 24 hours Discharge Patient Instructions, A light first meal may feel better in your stomach Discharge Patient Instructions, It is important that a responsible adult drive you home today Discharge Patient Instructions, Call or come to emergency department if vomiting blood or having black bowel movements, rectal bleeding or passing blood clots Discharge Patient Instructions, Passing gas rectally and belching is normal Discharge Patient Instructions, Cramping and abdominal bloating should subside in 1 hour or so Discharge Patient Instructions, Call or come to emergency department if having unusual pain or severe abdominal pain Discharge Patient Instructions, You may experience some gas cramps and abdominal bloating Discharge Patient Instructions, Avoid alcohol, tranquilizers, sleeping pills, or cold medicines for24 hours Discharge Patient Instructions, You may resume your normal diet and activity in 24 hours Medications What How Much When Instructions Next Dose Changed glipiZIDE (glipiZIDE 5 mg oral tablet) 1 tab Oral (given by mouth) Every day Unchanged atorvastatin (atorvastatin 20 mg oral tablet) 1 tab Oral (given by mouth) Every day Unchanged colchicine (colchicine 0.6 mg oral capsule) 1 Capsules Oral (given by mouth) 2 times a day as needed for gout pain Unchanged dulaglutide (Trulicity Pen 0.75 mg/ 0.5 mL subcutaneous solution) 0.5 Milliliters Subcutaneous (under the skin) Every week Unchanged empagliflozin (Jardiance 25 mg oral tablet) 1 tab Oral (given by mouth) Every morning Unchanged indomethacin (indomethacin 25 mg oral capsule) 1 Capsules Oral (given by mouth) Every day as needed for gout pain with food or milk ?? Unchanged lisinopril (lisinopril 20 mg oral tablet) 1 tab Oral (given by mouth) Every day Unchanged metFORMIN (metFORMIN 1000 mg oral tablet) 1 tab Oral (given by mouth) 2 times a day Unchanged omeprazole (omeprazole 40 mg oral delayed release capsule) 1 Capsules Oral (given by mouth) Every day Your Summary Your Care Team Admitting Physician - Víctor Puri MD Attending Physician - Víctor Puri MD Primary Care Physician - ARACELIS GILLETTE Your Diagnosis Encounter for screening colonoscopy Problems Ongoing - Any problem that you are currently receiving treatment for. Back pain Cornea anomaly Gouty arthritis HLD - Hyperlipidemia HTN - Hypertension Insomnia Triglyceridemia Type 2 diabetes mellitus Procedures History ???Colonoscopy Biopsy (03/16/2022)???Evacuation of blood clot of skin of limb, arm Discharge Vitals Temperature??(Temporal Artery) 97.2 ??F (36.2 ??C) Heart Rate??(Peripheral) 92 Respiratory Rate?? 18 Blood Pressure?? 116/70?? Allergies No Known Medication Allergies Education Materials Colonoscopy, Adult, Care After This sheet gives you information about how to care for yourself after your procedure. Your health care provider may also give you more specific instructions. If you have problems or questions, contact your health care provider. What can I expect after the procedure? After the procedure, it is common to have: ? A small amount of blood in your stool for 24 hours after the procedure. ? Some gas. ? Mild cramping or bloating of your abdomen. Follow these instructions at home: Eating and drinking ? Drink enough fluid to keep your urine pale yellow. ? Follow instructions from your health care provider about eating or drinking restrictions. ? Resume your normal diet as instructed by your health care provider. Avoid heavy or fried foods thatare hard to digest. Activity ? Rest as told by your health care provider. ? Avoid sitting for a long time without moving. Get up to take short walks every 1???2 hours. This isimportant to improve blood flow and breathing. Ask for help if you feel weak or unsteady. ? Return to your normal activities as told by your health care provider. Ask your health care provider what activities are safe for you. Managing cramping and bloating ? Try walking around when you have cramps or feel bloated. ? Apply heat to your abdomen as told by your health care provider. Use the heat source that your health care provider recommends, such as a moist heat pack or a heating pad. ? Place a towel between your skin and the heat source. ? Leave the heat on for 20???30 minutes. ? Remove the heat if your skin turns bright red. This is especially important if you are unable to feel pain, heat, or cold. You may have a greater risk of getting burned. General instructions ? If you were given a sedative during the procedure, it can affect you for several hours. Do not drive or operate machinery until your health care provider says that it is safe. ? For the first 24 hours after the procedure: ? Do not sign important documents. ? Do not drink alcohol. ? Do your regular daily activities at a slower pace than normal. ? Eat soft foods that are easy to digest. ? Take skju-yer-porkjuy and prescription medicines only as told by your health care provider. ? Keep all follow-up visits as told by your health care provider. This is important. Contact a health care provider if: ? You have blood in your stool 2???3 days after the procedure. Get help right away if you have: ? More than a small spotting of blood in your stool. ? Large blood clots in your stool. ? Swelling of your abdomen. ? Nausea or vomiting. ? A fever. ? Increasing pain in your abdomen that is not relieved with medicine. Summary ? After the procedure, it is common to have a small amount of blood in your stool. You may also have mild cramping and bloating of your abdomen. ? If you were given a sedative during the procedure, it can affect you for several hours. Do not drive or operate machinery until your health care provider says that it is safe. ? Get help right away if you have a lot of blood in your stool, nausea or vomiting, a fever, or increased pain in your abdomen. This information is not intended to replace advice given to you by your health care provider. Make sure you discuss any questions you have with your health care provider. Document Revised: 03/15/2020 Document Reviewed: 10/16/2019 [employer] Patient Education ?? 2021 [employer] Colon Polyps Colon polyps are tissue growths inside the colon, which is part of the large intestine. They are one of the types of polyps that can grow in the body. A polyp may be a round bump or a mushroom-shapedgrowth. You could have one polyp or more than one. Most colon polyps are noncancerous (benign). However, some colon polyps can become cancerous over time. Finding and removing the polyps early can help prevent this. What are the causes? The exact cause of colon polyps is not known. What increases the risk? The following factors may make you more likely to develop this condition: ? Having a family history of colorectal cancer or colon polyps. ? Being older than 45 years of age. ? Being younger than 45 years of age and having a significant family history of colorectal cancer or colon polyps or a genetic condition that puts you at higher risk of getting colon polyps. ? Having inflammatory bowel disease, such as ulcerative colitis or Crohn's disease. ? Having certain conditions passed from parent to child (hereditary conditions), such as: ? Familial adenomatous polyposis (FAP). ? Horan syndrome. ? Turcot syndrome. ? Peutz???Jeghers syndrome. ? MUTYH-associated polyposis (MAP). ? Being overweight. ? Certain lifestyle factors. These include smoking cigarettes, drinking too much alcohol, not gettingenough exercise, and eating a diet that is high in fat and red meat and low in fiber. ? Having had childhood cancer that was treated with radiation of the abdomen. What are the signs or symptoms? Many times, there are no symptoms. If you have symptoms, they may include: ? Blood coming from the rectum during a bowel movement. ? Blood in the stool (feces). The blood may be bright red or very dark in color. ? Pain in the abdomen. ? A change in bowel habits, such as constipation or diarrhea. How is this diagnosed? This condition is diagnosed with a colonoscopy. This is a procedure in which a lighted, flexible scope is inserted into the opening between the buttocks (anus) and then passed into the colon to examine the area. Polyps are sometimes found when a colonoscopy is done as part of routine cancer screening tests. How is this treated? This condition is treated by removing any polyps that are found. Most polyps can be removed during a colonoscopy. Those polyps will then be tested for cancer. Additional treatment may be needed depending on the results of testing. Follow these instructions at home: Eating and drinking ? Eat foods that are high in fiber, such as fruits, vegetables, and whole grains. ? Eat foods that are high in calcium and vitamin D, such as milk, cheese, yogurt, eggs, liver, fish, and broccoli. ? Limit foods that are high in fat, such as fried foods and desserts. ? Limit the amount of red meat, precooked or cured meat, or other processed meat that you eat, such as hot dogs, sausages, watson, or meat loaves. ? Limit sugary drinks. Lifestyle ? Maintain a healthy weight, or lose weight if recommended by your health care provider. ? Exercise every day or as told by your health care provider. ? Do not use any products that contain nicotine or tobacco, such as cigarettes, e- cigarettes, and chewing tobacco. If you need help quitting, ask your health care provider. ? Do not drink alcohol if: ? Your health care provider tells you not to drink. ? You are , may be , or are planning to become . ? If you drink alcohol: ? Limit how much you use to: ? 0???1 drink a day for women. ? 0???2 drinks a day for men. ? Know how much alcohol is in your drink. In the [place] one drink equals one 12 oz bottle of beer (355mL), one 5 oz glass of wine (148 mL), or one 1?? oz glass of hard liquor (44 mL). General instructions ? Take unpb-rch-ruagyfi and prescription medicines only as told by your health care provider. ? Keep all follow-up visits. This is important. This includes having regularly scheduled colonoscopies. Talk to your health care provider about when you need a colonoscopy. Contact a health care provider if: ? You have new or worsening bleeding during a bowel movement. ? You have new or increased blood in your stool. ? You have a change in bowel habits. ? You lose weight for no known reason. Summary ? Colon polyps are tissue growths inside the colon, which is part of the large intestine. They are one type of polyp that can grow in the body. ? Most colon polyps are noncancerous (benign), but some can become cancerous over time. ? This condition is diagnosed with a colonoscopy. ? This condition is treated by removing any polyps that are found. Most polyps can be removed during a colonoscopy. This information is not intended to replace advice given to you by your health care provider. Make sure you discuss any questions you have with your health care provider. Document Revised: 07/10/2020 Document Reviewed: 07/10/2020 [employer] Patient Education ?? 2021 [employer] Patient Name:JULIAN WELLER I have received this information and my questions have been answered. 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 male at average risk for colorectal cancer??for index screening colonoscopy. Physical Exam Vitals & Measurements T:??36.0?C ??(Temporal Artery)?? HR:??96??(Peripheral)?? RR:??18?? BP:??157/78?? SpO2:??98%?? O2 Therapy:??Room air?? Well-developed well-nourished white male no acute distress Lungs: Clear to auscultation bilaterally Heart: Regular rhythm S1-S2 Abdomen: Soft nontender Assessment/Plan 1.??Encounter for screening colonoscopy??Z12.11 Colonoscopy today. 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, First Dose: 03/16/22 6:37:00 EST, Routine Sodium Chloride 0.9% 1,000 mL, Total Volume (mL): 1,000, 1,000 mL, Soln-IV, IV, 50 mL/hr, Start Date: 03/16/22 6:36:00 EST, 113.4 kg, Populate Charting Weight From Order, 2.31, m2 Blood Glucose Monitoring POC RE, 03/16/22 6:36:00 EST, Stop date 03/16/22 6:36:00 EST NPO, 03/16/22 6:36:00 EST, Constant Indicator Obtain consent, 03/16/22 6:36:00 EST, Constant Order Peripheral IV Insertion, 03/16/22 6:36:00 EST Saline Lock Convert From IV, 03/16/22 6:36:00 EST, Stop date 03/16/22 6:36:00 EST Vital Signs, 03/16/22 6:36:00 EST, Stop date 03/16/22 6:36:00 EST, Routine Problem List/Past Medical History Ongoing Back pain Cornea anomaly Gouty arthritis HLD - Hyperlipidemia HTN - Hypertension Insomnia Triglyceridemia Type 2 diabetes mellitus Historical No qualifying data Procedure/Surgical History ???Evacuation of blood clot of skin of limb, arm Medications Inpatient Normal Saline Flush, 10 mL, IV Flush, As Directed, PRN Sodium Chloride 0.9% 1,000 mL, 1000 mL, IV Home atorvastatin 20 mg oral tablet, 20 mg= 1 tab, Oral, Daily colchicine 0.6 mg oral capsule, 0.6 mg= 1 cap, Oral, BID, PRN glipiZIDE 5 mg oral tablet, 5 mg= 1 tab, Oral, Daily indomethacin 25 mg oral capsule, 25 mg= 1 cap, Oral, Daily, PRN Jardiance 25 mg oral tablet, 25 mg= 1 tab, Oral, every morning lisinopril 20 mg oral tablet, 20 mg= 1 tab, Oral, Daily metFORMIN 1000 mg oral tablet, 1000 mg= 1 tab, Oral, BID omeprazole 40 mg oral delayed release capsule, 40 mg= 1 cap, Oral, Daily Trulicity Pen 0.75 mg/0.5 mL subcutaneous solution, 0.75 mg= 0.5 mL, Subcutaneous, every week Allergies No Known Medication Allergies Social History Alcohol Beer, 1-2 times per week Electronic Cigarette/Vaping Electronic Cigarette Use: Never. Tobacco Former tobacco user Tobacco Use:. Electronically Signed on 03/16/22 07:30 AM Víctor Puri MD Patient Care team information Personnel Name: ARACELIS GILLETTE Address: Address: [address] [place] [address] [address] [place] [address]
[2023-11-04 21:20] LABS: Abs Immature Grans 0.05 10^3/uL (0.0-0.06); Absolute Basophil Count 0.07 10^3/uL (0.0-0.2); Absolute Eosinophil Count 0.18 10^3/uL (0.0-0.7); Absolute Lymphocyte Count 4.22 10^3/uL (1.2-3.4); Absolute Monocyte Count 1.03 10^3/uL (0.1-0.8); Absolute Neutrophil Count 5.04 10^3/uL (1.2-6.7); Basophils % 0.7 %; Eosinophils % 1.7 %; HCT 48.8 % (40.0-50.0); Immature Grans % 0.5 %; Lymphocytes % 39.8 %; MCH 28.7 pg (27.0-33.0); MCHC 32.8 % (32.0-36.0); MCV 88 fL (80-95); MPV 10.7 fL (8.0-11.0); Monocytes % 9.7 %; Neutrophils % 47.6 %; Platelet Count 214 10^3/uL (130-400); RBC 5.58 10^6/uL (4.36-5.78); RDW 12.7 % (11.8-14.1); RDW-SD 39.9 fL; WBC 10.59 10^3/uL (4.4-10.8)
[2023-11-04 21:39] LABS: ALT 35 U/L (16-63); Albumin 4.1 g/dL (3.4-5.0); Alkaline Phosphatase 84 U/L (46-116); Anion Gap 14.8 mmol/L (3-11); BUN 16 mg/dL (7-18); Bilirubin, Total 0.36 mg/dL (0.2-1.0); CO2 24.2 mmol/L (21.0-32.0); Calcium 8.9 mg/dL (8.5-10.1); Chloride 107 mmol/L (98-107); Glucose 147 mg/dL (74-106); Magnesium 1.8 mg/dL (1.8-2.4); Potassium 4.1 mmol/L (3.5-5.1); Sodium 146 mmol/L (136-145); Total Protein 6.9 g/dL (6.4-8.2); Uric Acid 6.6 mg/dL (3.5-7.2)
[2023-11-04 22:08] LABS: Hemoglobin A1C 5.9 % (<5.7)
[2023-11-04 22:22] LABS: AST 27 U/L (15-37); Cholesterol 212 mg/dL (<200); HDL Cholesterol 35 mg/dL (40-60); Triglyceride 608 mg/dL (<150); Vitamin D 25 Total 21.6 ng/mL (30-100)
[2023-11-04 22:34] LABS: LDL CHOLESTEROL 91 mg/dL (<100)
[2023-11-05 18:56] LABS: Hepatitis C Ab w Rflx HCV PCR Negative (Negative)
[2023-11-05 19:06] LABS: HIV-1/2 Ag & Ab Screen Negative (Negative)
== END 2023-11-04 18:21 | disposition home or self-care (01) ==
LOC: NCHCN 18:20
PROVIDERS: PCP Nurse Practitioner Family; Visit Provider Nurse Practitioner Family
DX: Z00.00 Encounter for general adult medical examination without abnormal findings (principal); K21.9 Gastro-esophageal reflux disease without esophagitis
CPT/HCPCS: 80053; 80061; 82306; 83721; 86803; 87389; 83036; 83735; 84550; 85025

== ENCOUNTER 2024-03-09 22:12 | Outpatient (REF) | payer MEDICAID, SELFPAY ==
[2024-03-09 20:24] LABS: Calculated LDL 66 mg/dL (<100); Cholesterol 158 mg/dL (<200); HDL Cholesterol 39 mg/dL (40-60); Triglyceride 269 mg/dL (<150)
[2024-03-09 23:11] LABS: Vitamin D 25 Total 24.4 ng/mL (30-100)
== END 2024-03-09 22:13 | disposition home or self-care (01) ==
LOC: NCHCN 22:12
PROVIDERS: PCP Nurse Practitioner Family; Visit Provider Nurse Practitioner Family
DX: E78.5 Hyperlipidemia, unspecified (principal); E55.9 Vitamin D deficiency, unspecified
CPT/HCPCS: 80061; 82306

== ENCOUNTER 2024-06-08 21:32 | Outpatient (REF) | payer MEDICAID, SELFPAY ==
[2024-06-08 20:33] LABS: COMMENT (LAB VIEW ONLY) 88.66 mg/dL; Microalb ug/mg Crea 10.4 ug/mg Cr
== END 2024-06-08 21:33 | disposition home or self-care (01) ==
LOC: NCHCN 21:32
PROVIDERS: PCP Nurse Practitioner Family; Visit Provider Nurse Practitioner Family
DX: E11.9 Type 2 diabetes mellitus without complications (principal)
CPT/HCPCS: 82043; 82570

== ENCOUNTER 2024-12-18 14:41 | Outpatient (REF) | payer MEDICAID, SELFPAY ==
[2024-12-18 15:22] LABS: COMMENT (LAB VIEW ONLY) 109.04 mg/dL; Microalb ug/mg Crea 3.5 ug/mg Cr
== END 2024-12-18 14:42 | disposition home or self-care (01) ==
LOC: NCHCN 14:41
PROVIDERS: PCP Nurse Practitioner Family; Visit Provider Nurse Practitioner Family
DX: E11.9 Type 2 diabetes mellitus without complications (principal)
CPT/HCPCS: 80053; 82043; 82570; 82746; 85025